=== PATIENT | female | born 1935 | race Caucasian/White ===

== ENCOUNTER 2018-05-26 10:15 | Observation (INO) | payer OTHER ==
[2018-05-26] MEDS ORDERED: FUROSEMIDE 40 MG/4 ML VIAL ONE (11:18)
[2018-05-26] MEDS ORDERED: predniSONE 20 MG TAB ONE (11:18)
[2018-05-26] MEDS ORDERED: ALBUTEROL 2.5 MG/3 ML NEB SOL ONE (11:18)
[2018-05-26] MEDS ORDERED: IPRATROPIUM BROM 0.5MG/2.5ML ONE (11:18)
--- NOTE | 2018-05-26 11:19 | RAD REPORT ---
EXAM DESCRIPTION: RAD - Chest Single View - 05/26/2018 11:13 am CLINICAL HISTORY: SOB Chest pain. COMPARISON: Chest Single View dated 05/30/2016; Chest Single View dated 04/28/2016; Chest Single View dated 04/27/2016; CHEST PA AND LAT 2 VIEW dated 04/07/2010 FINDINGS: Portable technique limits examination quality. Mild moderate bilateral pulmonary opacities are present compatible with pulmonary edema. Bilateral pl eural effusions are seen. Moderate cardiomegaly is present. No displaced fractures. IMPRESSION: Moderate CHF/ volume overload.
[2018-05-26 12:03] LABS: Absolute Lymphocytes (CBC) 0.8 K/uL (0.7-4.9); Absolute Monocytes 1.1 K/uL (0.1-1.3); Absolute Neutrophil 8.1 K/uL (1.8-8.0); Basophils % 0.6 % (0-1.3); Eosinophils % 1.5 % (0-4.4); Hematocrit 24.2 % (36.0-45.0); Lymphocytes % 7.9 % (15.3-44.8); MCH 23.5 pg (27.0-35.0); MPV 7.2 fL (7.6-11.3); Monocytes % 10.7 % (3.3-12.3)
[2018-05-26 12:04] LABS: Protime INR 1.08
[2018-05-26 12:19] LABS: ALT/SGPT 20 U/L (12-78); AST/SGOT 27 U/L (15-37); Albumin 3.4 g/dL (3.4-5.0); Alkaline Phosphatase 88 U/L (45-117); BUN Blood Urea Nitrogen 26 mg/dL (7-18); Bicarbonate 29 mmol/L (21-32); Bilirubin Direct < 0.1 mg/dL (0-0.2); Bilirubin Total 0.4 mg/dL (0.2-1.0); Glucose Level 100 mg/dL (74-106); Magnesium 2.1 mg/dL (1.8-2.4); NT PRO-BNP 4016 pg/mL (<450); Potassium 4.9 mmol/L (3.5-5.1); Protein, Total 6.7 g/dL (6.4-8.2); Sodium Level 138 mmol/L (136-145)
[2018-05-26 12:36] LABS: Urine Blood NEGATIVE (NEG); Urine Glucose NEGATIVE (NEG); Urine Protein NEGATIVE (NEG); Urine Specific Gravity 1.015 (1.005-1.030); Urine pH 5.5 (5.0-7.0)
--- NOTE | 2018-05-26 12:56 | EKG ---
Test Date: 2018-05-26 Test Time: 10:50:00 Mitigation Supervisor: VANI MEASUREMENT RESULTS: Intervals: Rate: 95 AK: QRSD: 140 QT: 392 QTc: 492 [place]: P: AK: QRS: 135 T: 31 INTERPRETIVE STATEMENTS: Atrial fibrillation Right bundle branch block Abnormal ECG Compared to ECG 05/30/2016 12:11:29 Sinus bradycardia no longer present T-wave abnormality no longer present Possible ischemia no longer present Intraventricular conduction delay no longer present Electronically Signed On 05-26-18 12:55:47 CDT by El Brown
--- NOTE | 2018-05-26 13:29 | ER ---
Nurse's Notes [facility] Name: Joycelyn Coombs Age: 83 yrs Sex: Female : 1935 Arrival Date: 05/26/2018 Time: 10:19 Bed 13 Private MD: Rio Nicolas Diagnosis: Systolic (congestive) heart failure Presentation: 05/26 10:24 Presenting complaint: Patient states: SOB and increased need for home O2 concentrator aj at home with 30 ft of extension tubing. Patient reports feeling better with hospital O2. Transition of care: patient was not received from another setting of care. Onset of symptoms was May 23, 2018. Risk Assessment: Do you want to hurt yourself or someone else? Patient reports no desire to harm self or others. Care prior to arrival: None. 10:24 Method Of Arrival: Wheelchair aj 10:24 Acuity: DELL 3 aj 12:24 Initial Sepsis Screen: Does the patient meet any 2 criteria? No. Patient's initial ph sepsis screen is negative. Does the patient have a suspected source of infection? No. Patient's initial sepsis screen is negative. Triage Assessment: 10:28 General: Appears in no apparent distress. comfortable, Behavior is calm, cooperative, aj appropriate for age. Pain: Denies pain. Neuro: Level of Consciousness is awake, alert, obeys commands, Oriented to person, place, time, situation, Appropriate for age. Respiratory: Reports shortness of breath Airway is patent Respiratory effort is even, unlabored, Respiratory pattern is regular, symmetrical, Onset: The symptoms/episode began/occurred gradually, the patient has mild shortness of breath. Derm: Skin is intact, is healthy with good turgor, Skin is pink, warm \T\ dry. normal. Historical: - Allergies: 10:28 NKDA; aj - Home Meds: 10:28 amiodarone 200 mg Oral tab 1 tab 2 times per day [Active]; amlodipine 10 mg tab 1 tab aj once daily [Active]; atorvastatin 20 mg Oral tab 1 tab once daily [Active]; clopidogrel 75 mg Oral tab 1 tab once daily [Active]; Ferrocite Plus 106 mg iron- 1 mg Oral tab 1 tab once daily [Active]; fluticasone furoate 200 mcg INH [Active]; furosemide 20 mg Oral tab 1 tab once daily [Active]; hydrochlorothiazide 25 mg Oral tab 1 tab once daily [Active]; levothyroxine 25 mcg tab 1 tab once daily [Active]; lisinopril 20 mg Oral tab 1 tab once daily [Active]; metoprolol tartrate 25 mg Oral tab 1 tab once daily [Active]; prednisone 20 mg Oral tab once daily [Active]; vorapaxar Oral [Active]; Eliquis oral oral [Active]; - PMHx: 10:28 Anemia; Atrial Fib; COPD; Hyperlipidemia; Hypertension; Hypothyroidism; aj - PSHx: 10:28 cardiac stents; Kidney stents; Angioplasty; Hysterectomy; Cholecystectomy; Carotid aj surgery; - Immunization history:: Adult Immunizations up to date. - Social history:: Smoking status: Patient/guardian denies using tobacco. - Ebola Screening: : Patient negative for fever greater than or equal to 101.5 degrees Fahrenheit, and additional compatible Ebola Virus Disease symptoms Patient denies exposure to infectious person Patient denies travel to an Ebola-affected area in the 21 days before illness onset No symptoms or risks identified at this time. Screenin:23 Abuse screen: Denies threats or abuse. Denies injuries from another. Nutritional ph screening: No deficits noted. Tuberculosis screening: No symptoms or risk factors identified. Fall Risk None identified. Assessment: 10:45 General: Appears in no apparent distress. comfortable, well groomed, Behavior is calm, ph cooperative, appropriate for age, Reports chills for 12-24 hours. Pain: Denies pain. Neuro: Level of Consciousness is awake, alert, obeys commands, Oriented to person, place, time, situation. Cardiovascular: Reports shortness of breath, Denies chest pain, nausea, vomiting, Capillary refill < 3 seconds Patient's skin is warm and dry. 12:15 Reassessment: Dr. Llanes notified of critical lab Hgb 7.3. ss 13:35 Reassessment: Patient appears in no apparent distress at this time. Patient and/or ph family updated on plan of care and expected duration. Pain level reassessed. Patient is alert, oriented x 3, equal unlabored respirations, skin warm/dry/pink. Dr Alanis at bedside to speak w/ pt and family. Respiratory: Reports shortness of breath at rest Airway is patent Respiratory effort is even, unlabored, Respiratory pattern is regular, symmetrical, Denies cough, pain with respiration. GI: No signs and/or symptoms were reported involving the gastrointestinal system. Derm: Skin is intact, is healthy with good turgor, Skin is pink, warm \T\ dry. Musculoskeletal: Circulation, motion, and sensation intact. Range of motion: intact in all extremities. 15:00 Reassessment: Patient appears in no apparent distress at this time. Patient and/or ph family updated on plan of care and expected duration. Pain level reassessed. Patient is alert, oriented x 3, equal unlabored respirations, skin warm/dry/pink. Pt resting quietly, ECHO at bedside, awaiting room assignment, family at [facility]. 15:20 Reassessment: Attempted to call report, receiving nurse unavailable, requested to call ph back in 10 min. 16:01 Reassessment: Patient appears in no apparent distress at this time. Patient and/or ph family updated on plan of care and expected duration. Pain level reassessed. Patient is alert, oriented x 3, equal unlabored respirations, skin warm/dry/pink. Report neela Francisco RN. Vital Signs: 10:28 BP 163 / 71; Pulse 92; Resp 23; Temp 97.9; Pulse Ox 91% on R/A; Weight 81.19 kg; Height aj 5 ft. 7 in. (170.18 cm); 10:30 Pulse Ox 94% on 2 lpm NC; aj 11:57 BP 219 / 71; Pulse 99; Resp 24; Pulse Ox 99% on 2 lpm NC; mh5 13:23 BP 213 / 78; Pulse 113; Resp 20; Pulse Ox 97% on 2 lpm NC; mh5 14:30 BP 197 / 80; Pulse 98; Resp 18; Temp 97.8; Pulse Ox 98% on 2 lpm NC; ph 15:20 BP 173 / 91; Pulse 99; Resp 16; Temp 97.8; Pulse Ox 98% on 2 lpm NC; ph 15:57 BP 159 / 82; Pulse 104; Resp 18; Temp 97.8; Pulse Ox 98% on R/A; ph 10:28 Body Mass Index 28.04 (81.19 kg, 170.18 cm) aj ED Course: 10:19 Patient arrived in ED. sb2 10:19 Rio Nicolas MD is Private Physician. sb2 10:26 Triage completed. aj 10:30 Arm band placed on left wrist. Patient placed in an exam room, in a wheelchair, on aj oxygen. 10:31 Helena Tubbs, RN is Primary Nurse. ph 10:33 Royer Llanes MD is Attending Physician. gs 10:53 EKG done, by non destructive evaluation technician. reviewed by Royer Llanes MD. at1 11:12 X-ray completed. Portable x-ray completed in exam room. Patient tolerated procedure jb2 well. 11:12 XRAY Chest (1 view) In Process Unspecified. EDMS 11:35 Inserted saline lock: 20 gauge in left antecubital area, using aseptic technique. Blood ph collected. 12:24 Patient has correct armband on for positive identification. Bed in low position. Call ph light in reach. Side rails up X 1. Pulse ox on. NIBP on. Warm blanket given. 13:28 Garrett Alanis DO is Hospitalizing Provider. gs 15:21 No provider procedures requiring assistance completed. Patient admitted, IV remains in ph place. Administered Medications: 11:40 Drug: predniSONE 40 mg Route: PO; ph 11:45 Drug: Lasix 40 mg Route: IVP; Site: left antecubital; ph 12:08 Drug: Albuterol 2.5 mg Route: Inhalation; ph 12:08 Drug: AtroVENT Aerosol 0.5 mg Route: Inhalation; ph Outcome: 13:29 Decision to Hospitalize by Provider. gs 16:23 Patient left the ED. ph Signatures: Dispatcher [employer] EDVT Kasandra Acuna RN RN aj Buechter, Jesse jb2 Cheri Jama RN RN ss gonzales, Amanda, kitchen runner EKG Tat1 Helena Tubbs RN RN [place] [id number] Royer Llanes MD MD Ida Lopez 2 Corrections: (The following items were deleted from the chart) 13:37 10:45 Cardiovascular: Capillary refill < 3 seconds Patient's skin is warm and dry. ph ph
--- NOTE | 2018-05-26 13:29 | EDPHYS ---
Physician Documentation [facility] Name: Joycelyn Coombs Age: 83 yrs Sex: Female : 1935 Arrival Date: 05/26/2018 Time: 10:19 Bed 13 Private MD: Rio Nicolas ED Physician Royer Llanes HPI: 05/26 13:24 This 83 yrs old Female presents to ER via Wheelchair with complaints of gs Shortness Of Breath. 13:24 Onset: The symptoms/episode began/occurred 2 day(s) ago, and became worse and became gs persistent. Duration: The symptoms are continuous. The patient's shortness of breath is aggravated by supine position. Associated signs and symptoms: Pertinent negatives: chest pain. Severity of symptoms: At their worst the symptoms were severe in the emergency department the symptoms are unchanged. The patient has experienced similar episodes in the past, several times. Historical: - Allergies: 10:28 NKDA; aj - Home Meds: 10:28 amiodarone 200 mg Oral tab 1 tab 2 times per day [Active]; amlodipine 10 mg tab 1 tab aj once daily [Active]; atorvastatin 20 mg Oral tab 1 tab once daily [Active]; clopidogrel 75 mg Oral tab 1 tab once daily [Active]; Ferrocite Plus 106 mg iron- 1 mg Oral tab 1 tab once daily [Active]; fluticasone furoate 200 mcg INH [Active]; furosemide 20 mg Oral tab 1 tab once daily [Active]; hydrochlorothiazide 25 mg Oral tab 1 tab once daily [Active]; levothyroxine 25 mcg tab 1 tab once daily [Active]; lisinopril 20 mg Oral tab 1 tab once daily [Active]; metoprolol tartrate 25 mg Oral tab 1 tab once daily [Active]; prednisone 20 mg Oral tab once daily [Active]; vorapaxar Oral [Active]; Eliquis oral oral [Active]; - PMHx: 10:28 Anemia; Atrial Fib; COPD; Hyperlipidemia; Hypertension; Hypothyroidism; aj - PSHx: 10:28 cardiac stents; Kidney stents; Angioplasty; Hysterectomy; Cholecystectomy; Carotid aj surgery; - Immunization history:: Adult Immunizations up to date. - Social history:: Smoking status: Patient/guardian denies using tobacco. - Ebola Screening: : Patient negative for fever greater than or equal to 101.5 degrees Fahrenheit, and additional compatible Ebola Virus Disease symptoms Patient denies exposure to infectious person Patient denies travel to an Ebola-affected area in the 21 days before illness onset No symptoms or risks identified at this time. ROS: 13:24 All other systems are negative. gs Exam: 13:24 Head/Face: Normocephalic, atraumatic. Eyes: Pupils equal round and reactive to light, gs extra-ocular motions intact. Lids and lashes normal. Conjunctiva and sclera are non-icteric and not injected. Cornea within normal limits. Periorbital areas with no swelling, redness, or edema. ENT: Nares patent. No nasal discharge, no septal abnormalities noted. Tympanic membranes are normal and external auditory canals are clear. Oropharynx with no redness, swelling, or masses, exudates, or evidence of obstruction, uvula midline. Mucous membranes moist. Neck: Trachea midline, no thyromegaly or masses palpated, and no cervical lymphadenopathy. Supple, full range of motion without nuchal rigidity, or vertebral point tenderness. No Meningismus. Chest/axilla: Normal chest wall appearance and motion. Nontender with no deformity. No lesions are appreciated. 13:24 Abdomen/GI: Soft, non-tender, with normal bowel sounds. No distension or tympany. No guarding or rebound. No evidence of tenderness throughout. Back: No spinal tenderness. No costovertebral tenderness. Full range of motion. Skin: Warm, dry with normal turgor. Normal color with no rashes, no lesions, and no evidence of cellulitis. Neuro: Awake and alert, GCS 15, oriented to person, place, time, and situation. Cranial nerves II-XII grossly intact. Motor strength 5/5 in all extremities. Sensory grossly intact. Cerebellar exam normal. Normal gait. 13:24 Constitutional: The patient appears alert, awake. 13:24 Cardiovascular: Rate: normal, Rhythm: irregularly irregular, Pulses: no pulse deficits are appreciated, Edema: 2+ edema to level of left ankle and right ankle. 13:24 ECG was reviewed by the Attending Physician. 13:24 Respiratory: mild respiratory distress is noted, Respirations: tachypnea, Breath sounds: rales, that are moderate, are located in both bases, wheezing: that is mild, is heard diffusely. 13:24 Musculoskeletal/extremity: Pulses: are normal with no appreciated deficits, Edema, 2+ to the left ankle and right ankle is noted. Vital Signs: 10:28 BP 163 / 71; Pulse 92; Resp 23; Temp 97.9; Pulse Ox 91% on R/A; Weight 81.19 kg; Height aj 5 ft. 7 in. (170.18 cm); 10:30 Pulse Ox 94% on 2 lpm NC; aj 11:57 BP 219 / 71; Pulse 99; Resp 24; Pulse Ox 99% on 2 lpm NC; mh5 13:23 BP 213 / 78; Pulse 113; Resp 20; Pulse Ox 97% on 2 lpm NC; mh5 14:30 BP 197 / 80; Pulse 98; Resp 18; Temp 97.8; Pulse Ox 98% on 2 lpm NC; ph 15:20 BP 173 / 91; Pulse 99; Resp 16; Temp 97.8; Pulse Ox 98% on 2 lpm NC; ph 15:57 BP 159 / 82; Pulse 104; Resp 18; Temp 97.8; Pulse Ox 98% on R/A; ph 10:28 Body Mass Index 28.04 (81.19 kg, 170.18 cm) aj MDM: 10:56 Patient medically screened. 13:24 Differential diagnosis: CHF exacerbation, Chronic Obstructive Pulmonary Disease gs Myocardial Infarction pneumonia. Data reviewed: vital signs, nurses notes. Response to treatment: the patient's symptoms have markedly improved after treatment, and as a result, I will admit patient. 05/26 10:56 Order name: Basic Metabolic Panel; Complete Time: 12:51 05/26 10:56 Order name: CBC with Diff; Complete Time: 12:51 05/26 10:56 Order name: LFT's; Complete Time: 12:51 05/26 10:56 Order name: Magnesium; Complete Time: 12:51 05/26 10:56 Order name: NT PRO-BNP; Complete Time: 12:51 05/26 10:56 Order name: PT-INR; Complete Time: 12:51 05/26 10:56 Order name: Troponin (emerg Dept Use Only); Complete Time: 12:51 05/26 10:56 Order name: XRAY Chest (1 view); Complete Time: 11:50 05/26 10:56 Order name: Blood Culture* 05/26 12:19 Order name: Urine Dipstick--Ancillary (enter results); Complete Time: 12:51 05/26 10:56 Order name: EKG; Complete Time: 10:56 05/26 10:56 Order name: Cardiac monitoring; Complete Time: 13:34 05/26 10:56 Order name: EKG - Nurse/Tech; Complete Time: 13: 05/26 10:56 Order name: IV Saline Lock; Complete Time: 13: 05/26 10:56 Order name: Labs collected and sent; Complete Time: 13: 05/26 10:56 Order name: O2 Per Protocol; Complete Time: 13: 05/26 10:56 Order name: O2 Sat Monitoring; Complete Time: 13: 05/26 10:56 Order name: Urine Dipstick-Ancillary (obtain specimen); Complete Time: 13:34 EC:24 Rate is 95 beats/min. Rhythm is irregularly irregular. QRS [place] is Normal. QRS interval gs is prolonged. T waves are Flattened. Clinical impression: Abnormal EKG without significant change. Interpreted by me. Administered Medications: 11:40 Drug: predniSONE 40 mg Route: PO; ph 11:45 Drug: Lasix 40 mg Route: IVP; Site: left antecubital; ph 12:08 Drug: Albuterol 2.5 mg Route: Inhalation; ph 12:08 Drug: AtroVENT Aerosol 0.5 mg Route: Inhalation; ph Disposition: 13:24 Critical Care:. Disposition: 05/26/18 13:29 Hospitalization ordered by Garrett Alanis for Inpatient Admission. Preliminary diagnosis is Systolic (congestive) heart failure. - Bed requested for Telemetry/MedSurg (Inpatient). - Status is Inpatient Admission. ph - Condition is Stable. - Problem is an acute exacerbation. - Symptoms have improved. UTI on Admission? No Critical care time excluding procedures: 13:24 Critical care time: Bedside Care: 10 minutes, Consultation: 10 minutes, Family gs Intervention: 10 minutes. Total time: 30 minutes Signatures: Dispatcher [employer] Keisha Silverman RN RN dw Myers, Amanda, RN RN aj Hall, Patricia, RN RN ph Starr, Gregory, MD MD Corrections: (The following items were deleted from the chart) 14:53 13:29 Hospitalization Ordered by Garrett Alanis DO for Inpatient Admission. Preliminary dw diagnosis is Systolic (congestive) heart failure. Bed requested for Telemetry/MedSurg (Inpatient). Status is Inpatient Admission. Condition is Stable. Problem is an acute exacerbation. Symptoms have improved. UTI on Admission? No. gs 16:23 14:53 05/26/2018 13:29 Hospitalization Ordered by Garrett Alanis DO for Inpatient ph Admission. Preliminary diagnosis is Systolic (congestive) heart failure. Bed requested for Telemetry/MedSurg (Inpatient). Status is Inpatient Admission. Condition is Stable. Problem is an acute exacerbation. Symptoms have improved. UTI on Admission? No. dw
[2018-05-26] MEDS ORDERED: IPRATROPIUM BROM 0.5MG/2.5ML NEB PRN (13:45)
[2018-05-26] MEDS ORDERED: ONDANSETRON 4 MG/2 ML VIAL IV PRN (13:45)
[2018-05-26] MEDS ORDERED: ACETAMINOPHEN 500 MG TAB PO PRN (13:45)
[2018-05-26] MEDS ORDERED: SODIUM CHLORIDE 0.9% 10ML INJ IV PRN (14:03)
--- NOTE | 2018-05-26 14:24 | P.HP ---
Certification for Inpatient Patient admitted to: Observation With expected LOS: <2 Midnights Patient will require the following post-hospital care: None Practitioner: I am a practitioner with admitting privileges, knowledge of patient current condition, hospital course, and medical plan of care. Services: Services provided to patient in accordance with Admission requirements found in Title 42 Section 412.3 of the Code of Federal Regulations Patient History Date of Service: 05/26/18 Primary Care Provider: None; Pulmonary-Dr. Mccollmu; Cardiology-Dr. Asher Reason for admission: Shortness of breath History of Present Illness: 83-year-old female presented to ER with shortness of breath. Patient reports increasing shortness of breath over the past 2 weeks. She also has reported some edema to the lower extremity. She denied any chest pain, nausea, vomiting or diarrhea. Patient has reported some orthopnea. She is not able to lie flat. Shortness of breath worsened over the past 2 days. Increasing peripheral edema has been noted. Patient with history of atrial fibrillation on chronic anti coagulation therapy, hypertension, COPD, anemia, peripheral vascular disease, CAD, and carotid arterial disease. In the ER patient was evaluated. White count 10.2, hemoglobin 7.3. Platelet count of 419. Sodium 138, potassium 4.9, GFR 48. BNP 4016. Urinalysis negative. Chest x-ray showed moderate CHF. Due to nature the findings the patient was admitted for treatment. In the ER patient appeared stable. She did not appear in any respiratory distress. Patient had room-air saturations about 91%. Respiratory was slightly elevated. Patient was given Lasix in the emergency room. Patient denies any significant hematuria, rectal bleeding, or melena. Patient further reports a history of anemia. She is had EGD and colonoscopy in the past. Patient has required blood transfusion in the past. Allergies No Known Drug Allergies Allergy (Verified 06/22/16 08:29) Unknown Home medications list reviewed: Yes Home Medications: Amiodarone HCl [Cordarone*] 200 mg PO BID 04/27/16 Atorvastatin Calcium [Lipitor*] 20 mg PO DAILY 04/27/16 Clopidogrel Bisulfate [Plavix] 75 mg PO DAILY 04/27/16 Levothyroxine [Synthroid*] 25 mcg PO [id number] 04/27/16 Lisinopril [Prinivil*] 20 mg PO DAILY 04/27/16 Metoprolol Tartrate [Lopressor*] 25 mg PO DAILY 04/27/16 Amlodipine [Norvasc*] 10 mg PO DAILY #30 tab 04/30/16 Codeine/APAP [Tylenol #3*] 1 tab PO Q6HP PRN #30 tab 04/30/16 Pantoprazole [Protonix Tab*] 40 mg PO BID #60 tab 04/30/16 Fe Fumarate/FA/Mv, Min Comb#15 [Hemocyte Plus Capsule] 1 each PO DAILY 05/31/16 Fluticasone/Vilanterol [Breo Ellipta 200-25 Mcg INH] 1 each IH DAILY 05/31/16 Furosemide [Lasix] 20 mg PO DAILY 05/31/16 hydroCHLOROthiazide [Hydrochlorothiazide] 1 tab PO DAILY 05/31/16 Iron/FA/Vit B-Com W/C [Hemocyte Plus*] 1 tab PO DAILY #30 tab 06/01/16 Lactulose 20 gm PO DAILY #1000 ml 06/03/16 - Past Medical/Surgical History Diabetic: No -: CHF, systolic dysfunction -: Atrial fibrillation, chronic anti coagulation -: Anemia -: Chronic kidney disease -: Hypertension -: Hyperlipidemia -: COPD, former tobacco use -: Carotid arterial disease -: Peripheral vascular disease -: CAD -: Cardiac catheterization -: Left Carotid Stent -: Lower extremity stent -: Kidney stent Psychosocial/ Personal History: The patient is a . She has 2 children. - Family History Father -: Other (see notes) (CHF) Mother -: Other (see notes) (CHF) - Social History Smoking Status: Former smoker Alcohol use: No CD- Drugs: No Caffeine use: Yes Place of Residence: Home Review of Systems General: Unremarkable Eyes: Unremarkable ENT: Unremarkable Respiratory: Cough, Shortness of Breath, SOB with Excertion, Wheezing Cardiovascular: Orthopnea, Edema, As per HPI Gastrointestinal: Unremarkable Genitourinary: Unremarkable Musculoskeletal: Pedal edema, As per HPI Integumentary: Unremarkable Neurological: Unremarkable Lymphatics: Unremarkable Physical Examination - Physical Exam General: Alert, In no apparent distress, Oriented x3, Cooperative HEENT: Atraumatic, Normocephalic, PERRLA, Mucous membr. moist/pink Neck: Supple, No Thyromegaly Respiratory: Crackles/rales (Bilateral), Expiratory wheezes (Bilateral) Cardiovascular: Irregular heart rate/rhythm (Atrial fibrillation, rate around 90 -100) Gastrointestinal: Normal bowel sounds, Soft and benign, Non-distended, No tenderness, No masses, No rebound, No guarding Musculoskeletal: No erythema, No tenderness, No warmth Integumentary: No erythema, No warmth, No cyanosis, Tenderness/swelling (Mild edema to the lower extremities) Neurological: Normal speech, Normal strength at 5/5 x4 extr, Normal tone, Normal affect Lymphatics: No axilla or inguinal lymphadenopathy - Studies Laboratory Data (last 24 hrs) 05/26/18 11:35: PT 12.8 H, INR 1.08 05/26/18 11:35: WBC 10.2, Hgb 7.3 L*, Hct 24.2 L, Plt Count 419 H 05/26/18 11:35: Sodium 138, Potassium 4.9, BUN 26 H, Creatinine 1.10, Glucose 100, Magnesium 2.1, Total Bilirubin 0.4, AST 27, ALT 20, Alkaline Phosphatase 88 Assessment and Plan - Problems (Diagnosis) (1) COPD (chronic obstructive pulmonary disease) Current Visit: Yes Status: Acute Plan: Shortness of breath likely from COPD/CHF exacerbation. Will continue with COPD treatment. Will recheck x-ray in the morning. Will continue with IV steroids and breathing treatments. Will consult pulmonology to further evaluate. Patient may require home oxygen at discharge. Qualifiers: COPD type: COPD with acute exacerbation Qualified Code(s): J44.1 - Chronic obstructive pulmonary disease with (acute) exacerbation (2) Chronic anticoagulation Current Visit: Yes Status: Chronic Plan: Will continue with Eliquis. Patient with anemia. Patient reports a history of anemia requiring blood transfusion in the past. She has had EGD colonoscopy as well. Patient reports no melena. Will recheck hemoglobin. Will monitor closely. Patient may require transfusion. Will check iron and B12 studies. (3) Hypertension Current Visit: Yes Status: Chronic Plan: Will continue with her medication. Will increase metoprolol for better blood pressure control and rate control. Qualifiers: Hypertension type: essential hypertension Qualified Code(s): I10 - Essential (primary) hypertension (4) Hyperlipidemia Current Visit: Yes Status: Chronic Plan: Will continue with medication. Will check lipid panel. Qualifiers: Hyperlipidemia type: unspecified Qualified Code(s): E78.5 - Hyperlipidemia , unspecified (5) Hypothyroidism Current Visit: Yes Status: Chronic Plan: Will continue with her medication. Will check tsh. Qualifiers: Hypothyroidism type: unspecified Qualified Code(s): E03.9 - Hypothyroidism , unspecified (6) Anemia Onset Date: 06/01/16 Current Visit: No Status: Chronic Plan: Patient appears to have a history of chronic anemia. She has required blood transfusion the past. She has seen GI with EGD and colonoscopy. Will monitor hemoglobin closely. Patient may require transfusion. No melena noted. Qualifiers: Anemia type: other cause (7) Atrial fibrillation Current Visit: No Status: Chronic Plan: Will continue with her medication. Patient takes amiodarone. Qualifiers: Atrial fibrillation type: chronic Qualified Code(s): I48.2 - Chronic atrial fibrillation (8) Chronic kidney disease Current Visit: No Status: Chronic Plan: This appears stable. Will monitor closely. Qualifiers: Chronic kidney disease stage: stage 2 (mild) Qualified Code(s): N18.2 - Chronic kidney disease, stage 2 (mild) (9) Congestive heart failure (CHF) Current Visit: No Status: Acute Plan: CHF exacerbation noted. Will teach on 1500 cc per day fluid restriction and low- salt diet. Will continue with Lasix 20 mg IV twice daily. Will check echocardiogram. Patient seen by Cardiology as an outpatient. Qualifiers: Heart failure type: systolic Heart failure chronicity: acute on chronic Qualified Code(s): I50.23 - Acute on chronic systolic (congestive) heart failure Discharge Plan: Home Plan to discharge in: 24 Hours - Advance Directives Does patient have a Living Will: No Does patient have a Durable POA for Healthcare: No - Code Status/Comfort Care Code Status Assessed: Yes Time Spent Managing Pts Care (In Minutes): 55
--- NOTE | 2018-05-26 15:33 | ECHO ---
HEIGHT: 5 ft 7 in WEIGHT: 179 lb oz DATE OF STUDY: 05/26/[address]: Garrett Alanis DO 2-DIMENSIONAL: YES M.MODE: YES DOPPLER: YES COLOR FLOW: YES TDS: YES PORTABLE: NO DEFINITY: NO BUBBLE STUDY: NO DIAGNOSIS: EVALUATE FOR CONGESTIVE HEART FAILURE CARDIAC HISTORY: CATHERIZATION: NO SURGERY: NO PROSTHETIC VALVE: NO PACEMAKER: NO MEASUREMENTS (cm) DIASTOLIC (NORMALS) SYSTOLIC (NORMALS) IVSd 1.6 (0.6-1.2) LA Diam 5.3 (1.9-4.0) LVEF 71% LVIDd 4.2 (3.5-5.7) LVIDs 2.5 (2.0-3.5) %FS 40% LVPWd 1.4 (0.6-1.2) Ao Diam 2.8 (2.0-3.7) 2 DIMENSIONAL ASSESSMENT: RIGHT ATRIUM: NORMAL LEFT ATRIUM: DILATED RIGHT VENTRICLE: NORMAL LEFT VENTRICLE: LEFT VENTRICULAR HYPERTROPHY TRICUSPID VALVE: NORMAL MITRAL VALVE: MITRAL ANNULAR CALCIFICATION PULMONIC VALVE: NORMAL AORTIC VALVE: SCLEROSIS PERICARDIAL EFFUSION: NONE AORTIC ROOT: NORMAL LEFT VENTRICULAR WALL MOTION: NORMAL. DOPPLER/COLOR FLOW: MILD MITRAL REGURGITATION. MILD TRICUSPID REGURGITATION. MILDLY PULMONARY HYPERTENSION. ESTIMATED RIGHT VENTRICULAR SYSTOLIC PRESSURE 45mmHg. COMMENTS: NORMAL LEFT VENTRICULAR EJECTION FRACTION. LEFT VENTRICULAR HYPERTROPHY. DILATED LEFT ATRIUM. MITRAL ANNULAR CALCIFICATION. AORTIC SCLEROSIS WITH NO AORTIC STENOSIS/ AORTIC REGURGITATION. MILD MITRAL REGURGITATION. MILD TRICUSPID REGURGITATION. MILD PULMONARY HYPERTENSION. TECHNOLOGIST: CORTES ROSS
[2018-05-26 17:52] VITALS: BMI 28.0
[2018-05-26 17:58] LABS: Hematocrit 24.4 % (36.0-45.0)
[2018-05-26 18:31] LABS: Ferritin 23.3 ng/mL (8-388)
[2018-05-26] MEDS ORDERED: LACTULOSE 20 GM/30 ML UCUP PO PRN (18:41)
[2018-05-26] MEDS: FUROSEMIDE 20 MG/ 2ML VIAL IV SCH (18:49)
[2018-05-26] MEDS: METHYLPREDNISOLONE 125 MG INJ IV SCH ×2 (18:50→20:36)
[2018-05-26] MEDS: APIXABAN 5 MG TABLET PO SCH (19:00)
[2018-05-26] MEDS: METOPROLOL TAR 50 MG TAB PO SCH (19:00)
[2018-05-26] MEDS: ATORVASTATIN 20 MG TAB PO SCH (19:00)
[2018-05-26] MEDS: AMIODARONE HCL 200 MG TAB PO SCH (19:01)
[2018-05-26] MEDS: HYDROCODONE/APAP 7.5/325 MG TAB PO PRN (19:06)
[2018-05-26] MEDS ORDERED: ARFORMOTEROL TARTRATE 15 MCG/2 ML VIAL.NEB ONE (19:43)
[2018-05-26] MEDS: ARFORMOTEROL TARTRATE 15 MCG/2 ML VIAL.NEB NEB SCH (19:49)
[2018-05-26] MEDS: PANTOPRAZOLE 40 MG INJ IVP SCH (20:36)
[2018-05-26] MEDS: ALPRAZOLAM 0.25 MG TABLET PO PRN (20:53)
[2018-05-26 21:16] LABS: CKMB Creatine Kinase MB 2.9 ng/mL (0.3-3.6)
[2018-05-27] MEDS: LEVOTHYROXINE SOD 0.025 MG TAB PO SCH (05:04)
[2018-05-27 05:25] LABS: Absolute Lymphocytes (CBC) 0.5 K/uL (0.7-4.9); Absolute Monocytes 0.1 K/uL (0.1-1.3); Absolute Neutrophil 8.4 K/uL (1.8-8.0); Basophils % 0.3 % (0-1.3); Eosinophils % 0.1 % (0-4.4); Hematocrit 23.1 % (36.0-45.0); MCH 24.3 pg (27.0-35.0); MCV 76.6 fL (80-100); MPV 7.3 fL (7.6-11.3); Monocytes % 1.3 % (3.3-12.3); RBC Red Blood Cell Count 3.01 M/uL (3.86-4.86)
[2018-05-27 06:22] LABS: Blood Morphology Comment NOTED (NOT SEEN); Hypochromasia 1+; Platelet Estimate INCR; Urine White Blood Cell Casts OK
[2018-05-27 06:38] LABS: Albumin 3.3 g/dL (3.4-5.0); Bilirubin Total 0.3 mg/dL (0.2-1.0); CKMB Creatine Kinase MB 3.2 ng/mL (0.3-3.6); Potassium 4.6 mmol/L (3.5-5.1); Protein, Total 6.6 g/dL (6.4-8.2); Thyroid Stimulating Hormone 1.45 uIU/mL (0.36-3.74)
[2018-05-27] MEDS: ARFORMOTEROL TARTRATE 15 MCG/2 ML VIAL.NEB NEB SCH ×2 (07:46→20:25)
--- NOTE | 2018-05-27 08:20 | RAD REPORT ---
EXAM DESCRIPTION: RAD - Chest Pa And Lat (2 Views) - 05/27/2018 7:15 am CLINICAL HISTORY: follow up chf/copd Chest pain. COMPARISON: Chest Single View dated 05/26/2018; Chest Single View dated 05/30/2016; Chest Single View dated 04/28/2016; Chest Single View dated 04/27/2016 FINDINGS: Little overall change is seen since 05/26/2018 in the bilateral pleural effusions and CHF pattern. The heart is moderately enlarged in size. No displaced fractures. Aortic atherosclerosis. IMPRESSION: Stable findings of CHF/ volume overload since 05/26/2018.
[2018-05-27] MEDS: FUROSEMIDE 20 MG/ 2ML VIAL IV SCH ×2 (08:37→16:54)
[2018-05-27] MEDS: METHYLPREDNISOLONE 125 MG INJ IV SCH (08:37)
[2018-05-27] MEDS: AMIODARONE HCL 200 MG TAB PO SCH ×2 (08:37→21:22)
[2018-05-27] MEDS: PANTOPRAZOLE 40 MG INJ IVP SCH ×2 (08:38→21:29)
[2018-05-27] MEDS: APIXABAN 5 MG TABLET PO SCH ×2 (08:38→21:22)
[2018-05-27] MEDS: METOPROLOL TAR 50 MG TAB PO SCH ×2 (08:38→21:21)
[2018-05-27] MEDS: AMLODIPINE 10 MG TAB PO SCH (08:38)
[2018-05-27] MEDS: CLOPIDOGREL 75 MG TABLET PO SCH (08:38)
[2018-05-27] MEDS ORDERED: SOD FERRIC GLUC COMPLX/SUCROSE 125 MG in NA CHLORIDE 0.9% 100 ML IV SCH (09:00)
[2018-05-27 09:40] LABS: Hematocrit 23.4 % (36.0-45.0)
--- NOTE | 2018-05-27 10:44 | P.PN ---
Subjective Date of Service: 05/27/18 Primary Care Provider: None; Pulmonary-Dr. Mccollum; Cardiology-Dr. Asher Chief Complaint: Shortness of breath Subjective: Improving (Patient feels better. Patient was diuresed Overnite.) Physical Examination - Vital Signs Temperature: 98.9 F Blood Pressure: 158/56 Pulse: 95 Respirations: 22 Pulse Ox (%): 89 - Physical Exam General: Alert, In no apparent distress, Oriented x3, Cooperative HEENT: Atraumatic Neck: Supple Respiratory: Crackles/rales (To the bases bilateral) Cardiovascular: Normal pulses, Regular rate/rhythm Gastrointestinal: Normal bowel sounds, Soft and benign, Non-distended, No tenderness, No masses, No rebound, No guarding Musculoskeletal: No erythema, No tenderness, No warmth Integumentary: No erythema, No warmth, No cyanosis, Tenderness/swelling (Less edema to the lower extremities bilateral) Neurological: Normal speech, Normal strength at 5/5 x4 extr, Normal tone, Normal affect - Studies Laboratory Data (last 24 hrs) 05/26/18 11:35: PT 12.8 H, INR 1.08 05/26/18 11:35: WBC 10.2, Hgb 7.3 L*, Hct 24.2 L, Plt Count 419 H 05/26/18 11:35: Sodium 138, Potassium 4.9, BUN 26 H, Creatinine 1.10, Glucose 100, Magnesium 2.1, Total Bilirubin 0.4, AST 27, ALT 20, Alkaline Phosphatase 88 Medications List Reviewed: Yes Assessment & Plan - Problems (Diagnosis) (1) COPD (chronic obstructive pulmonary disease) Onset Date: 05/27/18 Current Visit: Yes Status: Acute Plan: Shortness of breath likely from COPD/CHF exacerbation. This is likely more CHF related. Patient much improved. Will continue with COPD treatment. Will discuss with pulmonology. Patient with anemia. This is been long standing. Patient has stopped her iron medication for over a year. Hemoglobin decreased at this time. Will provide 2 units of blood. Patient has been evaluated as an outpatient by GI. Patient currently taking Plavix and Eliquis. Anticipate possible discharge later today. Echocardiogram shows ejection fraction 75% with mild pulmonary hypertension. Will continue with diuresis. Will reassess later for possible discharge. Patient may require home oxygen at discharge. Qualifiers: COPD type: COPD with acute exacerbation Qualified Code(s): J44.1 - Chronic obstructive pulmonary disease with (acute) exacerbation (2) Chronic anticoagulation Onset Date: 05/27/18 Current Visit: Yes Status: Chronic Plan: Will continue with Eliquis. Patient with anemia. Patient reports a history of anemia requiring blood transfusion in the past. She has had EGD colonoscopy as well. Patient reports no melena. Recheck hemoglobin low. Will provide 2 units of packed red blood cells at this time. Patient reports that she stop her iron medication over a year ago. Patient will require Lasix after each unit. Will recheck hemoglobin after 2nd unit given. Possible discharge later today if stable. Patient will need oral iron therapy at discharge. (3) Hypertension Onset Date: 05/27/18 Current Visit: Yes Status: Chronic Plan: Will continue with her medication. Metoprolol has been increased. Will continue to adjust medication. Qualifiers: Hypertension type: essential hypertension Qualified Code(s): I10 - Essential (primary) hypertension (4) Hyperlipidemia Onset Date: 05/27/18 Current Visit: Yes Status: Chronic Plan: Will continue with medication. Qualifiers: Hyperlipidemia type: unspecified Qualified Code(s): E78.5 - Hyperlipidemia , unspecified (5) Hypothyroidism Onset Date: 05/27/18 Current Visit: Yes Status: Chronic Plan: Will continue with her medication. Qualifiers: Hypothyroidism type: unspecified Qualified Code(s): E03.9 - Hypothyroidism , unspecified (6) Anemia Onset Date: 06/01/16 Current Visit: No Status: Chronic Plan: Patient appears to have a history of chronic anemia. She has required blood transfusion the past. She has seen GI with EGD and colonoscopy. Patient also takes Eliquis and Plavix. Hemoglobin low at this time. Will provide 2 units of packed red blood cells. Will provide Lasix after each unit. Will reassess after transfusion. Anticipate discharge later today. Patient reports that she has not used her oral iron for over a year. Patient will need iron supplementation at discharge. Qualifiers: Anemia type: other cause (7) Atrial fibrillation Onset Date: 05/27/18 Current Visit: Yes Status: Chronic Plan: Will continue with her medication. Patient only takes Eliquis once daily. This should be given twice daily. 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 Qualifiers: Atrial fibrillation type: chronic Qualified Code(s): I48.2 - Chronic atrial fibrillation (8) Chronic kidney disease Onset Date: 05/27/18 Current Visit: Yes Status: Chronic Plan: This appears stable. Will monitor closely. Qualifiers: Chronic kidney disease stage: stage 2 (mild) Qualified Code(s): N18.2 - Chronic kidney disease, stage 2 (mild) (9) Congestive heart failure (CHF) Onset Date: 05/27/18 Current Visit: Yes Status: Acute Plan: Patient with diastolic dysfunction. Ejection fraction 75%. Mild pulmonary hypertension noted with the right ventricular systolic pressure of 45 mm Hg. Will continue with fluid restriction. Will continue with diuresis. Will address with pulmonology and her 3rd grade reading teacher as an outpatient. Qualifiers: Heart failure type: systolic Heart failure chronicity: acute on chronic Qualified Code(s): I50.23 - Acute on chronic systolic (congestive) heart failure (10) Pulmonary hypertension Current Visit: Yes Status: Chronic Plan: Continue above. Discharge Plan: Home Plan to discharge in: 24 Hours Time Spent Managing Pts Care (In Minutes): 55
[2018-05-27] MEDS ORDERED: FUROSEMIDE 20 MG/ 2ML VIAL IV SCH (11:07)
--- NOTE | 2018-05-27 12:51 | P.CNS ---
Date of Consult: 05/27/18 Primary Care Provider: None; Pulmonary-Dr. Mccollum; Cardiology-Dr. Asher Chief Complaint: Shortness of breath History of Present Illness: Patient is a pleasant 83-year-old lady with a history of COPD he quit swelling of lower extremities patient is compliant with her inhaler doing much better admitted with a congestive heart failure BNP was elevated lower extremity edema no other complaints Allergies No Known Drug Allergies Allergy (Verified 06/22/16 08:29) Unknown zolpidem [From Ambien] Adverse Reaction (Verified 05/26/18 18:18) Anaphylaxis Home Medications: Amiodarone HCl [Cordarone*] 200 mg PO BID 04/27/16 Atorvastatin Calcium [Lipitor*] 20 mg PO DAILY 04/27/16 Clopidogrel Bisulfate [Plavix] 75 mg PO DAILY 04/27/16 Levothyroxine [Synthroid*] 25 mcg PO [id number] 04/27/16 Lisinopril [Prinivil*] 20 mg PO DAILY 04/27/16 Metoprolol Tartrate [Lopressor*] 25 mg PO DAILY 04/27/16 Amlodipine [Norvasc*] 10 mg PO DAILY #30 tab 04/30/16 Fluticasone/Vilanterol [Breo Ellipta 200-25 Mcg INH] 1 each IH DAILY 05/31/16 Furosemide [Lasix] 20 mg PO DAILY 05/31/16 hydroCHLOROthiazide [Hydrochlorothiazide] 1 tab PO DAILY 05/31/16 Albuterol Sulfate [Proair Hfa] 2 puff IH QID PRN 05/26/18 Apixaban [Eliquis] 2.5 mg PO DAILY 05/26/18 Hydrocodone Bit/Acetaminophen [Hydrocodon-Acetaminoph 7.5-325] 1 tab PO BID PRN 05/26/18 Lactulose 20 gm PO DAILY PRN 05/26/18 - Past Medical/Surgical History Diabetic: No -: CHF, systolic dysfunction -: Atrial fibrillation, chronic anti coagulation -: Anemia -: Chronic kidney disease -: Hypertension -: Hyperlipidemia -: COPD, former tobacco use -: Carotid arterial disease -: Peripheral vascular disease -: CAD -: rt leg fx in 3 places -: rt arm & shoulder broke -: Cardiac catheterization -: Left Carotid Stent -: Lower extremity stents -: bilat kidney stents Psychosocial/ Personal History: The patient is a . She has 2 children. - Family History Father Medical History: Heart disease, Other (see notes) Mother Medical History: Heart disease, Other (see notes) Sister Medical History: Heart disease Notes: A-fibb - Social History Alcohol use: No CD- Drugs: No Caffeine use: Yes Place of Residence: Home Review of Systems 10-point ROS is otherwise unremarkable General: Weakness Respiratory: Shortness of Breath Cardiovascular: Edema Physical Examination Temp Pulse Resp BP Pulse Ox 98.9 F 95 H 22 H 158/56 H 89 L 05/27/18 10:46 05/27/18 10:46 05/27/18 10:46 05/27/18 10:46 05/27/18 10:46 General: Alert, Oriented x3 HEENT: Atraumatic Neck: Supple Respiratory: Clear to auscultation bilaterally, Diminished Cardiovascular: Normal S1 S2, Edema (2+ edema) Gastrointestinal: Normal bowel sounds, Soft and benign - Problems (1) Diastolic heart failure Current Visit: Yes Status: Acute Plan: Patient is 83 years of age admitted with worsening dyspnea lower extremity edema he does have COPD and is compliant with her medication patient has home oxygen patient has bilateral pleural effusions mild renal insufficiency BNP is over 4000 I suggest increasing the dose of her Lasix at home patient to restrict fluid intake continue with bronchodilators patient has a portable home concentrator and requested replacement with a smaller 1 patient's blood pressure is elevated in addition patient has severe microcytic anemia has been seen by GI I will get an iron infusion here she was supposed to be taking iron but she Qualifiers: Heart failure chronicity: acute on chronic Qualified Code(s): I50.33 - Acute on chronic diastolic (congestive) heart failure
[2018-05-27] MEDS ORDERED: NA CHLORIDE 0.9% 250 ML ONE (21:21)
[2018-05-27] MEDS: ATORVASTATIN 20 MG TAB PO SCH (21:22)
[2018-05-27] MEDS: HYDROCODONE/APAP 7.5/325 MG TAB PO PRN (21:28)
[2018-05-27] MEDS: ALPRAZOLAM 0.25 MG TABLET PO PRN (21:29)
[2018-05-28 03:39] VITALS: O2SAT 95
[2018-05-28 03:39] LABS: Absolute Lymphocytes (CBC) 1.1 K/uL (0.7-4.9); Absolute Monocytes 1.8 K/uL (0.1-1.3); Absolute Neutrophil 18.7 K/uL (1.8-8.0); Basophils % 0.2 % (0-1.3); Hematocrit 29.6 % (36.0-45.0); Lymphocytes % 4.9 % (15.3-44.8); MCH 24.3 pg (27.0-35.0); MCV 79.3 fL (80-100); MPV 7.5 fL (7.6-11.3); Monocytes % 8.4 % (3.3-12.3); RBC Red Blood Cell Count 3.74 M/uL (3.86-4.86)
[2018-05-28 03:49] LABS: Albumin 3.4 g/dL (3.4-5.0); Bilirubin Total 0.6 mg/dL (0.2-1.0); Magnesium 2.1 mg/dL (1.8-2.4); Potassium 4.6 mmol/L (3.5-5.1); Protein, Total 6.5 g/dL (6.4-8.2)
[2018-05-28 04:41] LABS: Anisocytosis 1+; Blood Morphology Comment NOTED (NOT SEEN); Platelet Estimate ADEQ
[2018-05-28] MEDS: LEVOTHYROXINE SOD 0.025 MG TAB PO SCH (06:21)
[2018-05-28 07:23] LABS: Absolute Lymphocytes (CBC) 1.4 K/uL (0.7-4.9); Absolute Monocytes 1.6 K/uL (0.1-1.3); Absolute Neutrophil 15.5 K/uL (1.8-8.0); Basophils % 0.3 % (0-1.3); Hematocrit 28.6 % (36.0-45.0); Lymphocytes % 7.6 % (15.3-44.8); MCH 24.5 pg (27.0-35.0); MCV 79.5 fL (80-100); MPV 7.4 fL (7.6-11.3); Monocytes % 8.6 % (3.3-12.3)
--- NOTE | 2018-05-28 07:56 | RAD REPORT ---
EXAM DESCRIPTION: Dayron Soriano And Lat (2 Views)05/28/2018 7:20 am CLINICAL HISTORY: Shortness of breath COMPARISON: May 27 FINDINGS: Small to moderate bilateral pleural effusions are unchanged with bibasilar atelectasis. Mi ld interstitial pulmonary edema is suspected. The heart is mildly enlarged IMPRESSION: No change in CHF
[2018-05-28] MEDS: PANTOPRAZOLE 40 MG INJ IVP SCH (08:35)
[2018-05-28] MEDS: CLOPIDOGREL 75 MG TABLET PO SCH (08:35)
[2018-05-28] MEDS: APIXABAN 5 MG TABLET PO SCH (08:35)
[2018-05-28] MEDS: ARFORMOTEROL TARTRATE 15 MCG/2 ML VIAL.NEB NEB SCH (08:36)
[2018-05-28] MEDS: AMLODIPINE 10 MG TAB PO SCH (08:36)
[2018-05-28] MEDS: AMIODARONE HCL 200 MG TAB PO SCH (08:36)
[2018-05-28] MEDS: METOPROLOL TAR 50 MG TAB PO SCH (08:36)
[2018-05-28] MEDS: FUROSEMIDE 20 MG/ 2ML VIAL IV SCH (08:37)
[2018-05-28 08:40] VITALS: TEMP 98.5
--- NOTE | 2018-05-28 09:49 | P.DS ---
Admission Date: 05/26/18 Discharge Date: 05/28/18 Primary Care Provider: None; Pulmonary-Dr. Mccollum; Cardiology-Dr. Asher Disposition: ROUTINE DISCHARGE Discharge Condition: GOOD Reason for Admission: Shortness of breath Consultations: Pulmonary-Dr. Mccollum Procedures: Echocardiogram: Ejection fraction 70%. DOPPLER/COLOR FLOW: MILD MITRAL REGURGITATION. MILD TRICUSPID REGURGITATION. MILDLY PULMONARY HYPERTENSION. ESTIMATED RIGHT VENTRICULAR SYSTOLIC PRESSURE 45mmHg. COMMENTS: NORMAL LEFT VENTRICULAR EJECTION FRACTION. LEFT VENTRICULAR HYPERTROPHY. DILATED LEFT ATRIUM. MITRAL ANNULAR CALCIFICATION. AORTIC SCLEROSIS WITH NO AORTIC STENOSIS/ AORTIC REGURGITATION. MILD MITRAL REGURGITATION. MILD TRICUSPID REGURGITATION. MILD PULMONARY HYPERTENSION. - Problems (1) COPD (chronic obstructive pulmonary disease) Onset Date: 05/27/18 Current Visit: Yes Status: Chronic Qualifiers: COPD type: chronic bronchitis Chronic bronchitis type: unspecified Qualified Code(s): J42 - Unspecified chronic bronchitis (2) Chronic anticoagulation Onset Date: 05/27/18 Current Visit: Yes Status: Chronic (3) Hypertension Onset Date: 05/27/18 Current Visit: Yes Status: Chronic Qualifiers: Hypertension type: essential hypertension Qualified Code(s): I10 - Essential (primary) hypertension (4) Hyperlipidemia Onset Date: 05/27/18 Current Visit: Yes Status: Chronic Qualifiers: Hyperlipidemia type: unspecified Qualified Code(s): E78.5 - Hyperlipidemia , unspecified (5) Hypothyroidism Onset Date: 05/27/18 Current Visit: Yes Status: Chronic Qualifiers: Hypothyroidism type: unspecified Qualified Code(s): E03.9 - Hypothyroidism , unspecified (6) Anemia Onset Date: 06/01/16 Current Visit: No Status: Chronic Qualifiers: Anemia type: other cause (7) Atrial fibrillation Onset Date: 05/27/18 Current Visit: Yes Status: Chronic Qualifiers: Atrial fibrillation type: chronic Qualified Code(s): I48.2 - Chronic atrial fibrillation (8) Chronic kidney disease Onset Date: 05/27/18 Current Visit: Yes Status: Chronic Qualifiers: Chronic kidney disease stage: stage 3 (moderate) Qualified Code(s): N18.3 - Chronic kidney disease, stage 3 (moderate) (9) Congestive heart failure (CHF) Onset Date: 05/27/18 Current Visit: Yes Status: Acute Qualifiers: Heart failure type: diastolic Heart failure chronicity: acute on chronic Qualified Code(s): I50.33 - Acute on chronic diastolic (congestive) heart failure (10) Pulmonary hypertension Current Visit: Yes Status: Chronic (11) Supplemental oxygen dependent Current Visit: Yes Status: Chronic Brief History of Present Illness: 83-year-old female presented to ER with shortness of breath. Patient reports increasing shortness of breath over the past 2 weeks. She also has reported some edema to the lower extremity. She denied any chest pain, nausea, vomiting or diarrhea. Patient has reported some orthopnea. She is not able to lie flat. Shortness of breath worsened over the past 2 days. Increasing peripheral edema has been noted. Patient with history of atrial fibrillation on chronic anti coagulation therapy, hypertension, COPD, anemia, peripheral vascular disease, CAD, and carotid arterial disease. In the ER patient was evaluated. White count 10.2, hemoglobin 7.3. Platelet count of 419. Sodium 138, potassium 4.9, GFR 48. BNP 4016. Urinalysis negative. Chest x-ray showed moderate CHF. Due to nature the findings the patient was admitted for treatment. In the ER patient appeared stable. She did not appear in any respiratory distress. Patient had room-air saturations about 91%. Respiratory was slightly elevated. Patient was given Lasix in the emergency room. Patient denies any significant hematuria, rectal bleeding, or melena. Patient further reports a history of anemia. She is had EGD and colonoscopy in the past. Patient has required blood transfusion in the past. Hospital Course: Patient presented with shortness of breath secondary to CHF exacerbation. Patient was evaluated the emergency room. Chest x-ray showed CHF pattern. Patient was diuresed. Echocardiogram done. Patient with diastolic dysfunction. Ejection fraction 71%. Medications have been adjusted. Patient did well in the course of her stay. Patient will no longer take hydrochlorothiazide. New medication includes Lasix. At discharge patient will continue with Lasix 40 mg 1 pill twice daily. Patient will also continue with a 1500 cc per day fluid restriction and low-salt diet. Recommendation is to monitor her weight daily. If her weight increases by more than 5 lb further adjustment in medication may be required. Further adjustment can be done by her PCP or cardiology. Patient will continue with incentive spirometer. Patient will continue with home oxygen to maintain sats above 90%. Patient has COPD. This remained stable. No pneumonia or COPD exacerbation was noted during her stay. Patient was given Solu-Medrol in the emergency room. Patient evaluated by pulmonology. No intervention was required. At discharge, Patient will continue with Breo 1 puff daily and albuterol 1 unit dose 3 times a day as needed for shortness of breath. Patient will continue with home oxygen and to maintain sats above 90%. Recommendation is for the patient follow up with pulmonology as an outpatient to further monitor. Patient has atrial fibrillation. Patient takes chronic anti coagulation therapy -Eliquis. Patient had only been taking once daily dosing of Eliquis. Medications were adjusted during her stay. At discharge patient was in atrial fibrillation, rate controlled. At discharge patient will continue with amiodarone 200 mg 1 pill twice daily. At discharge metoprolol has been increased to 100 mg 1 pill twice daily for better rate control. Her coagulation therapy has been adjusted as well. At discharge, Patient will continue with Eliquis 5 mg 1 pill twice daily. Patient will need a follow up with cardiology in 1 week to monitor her progress. Further adjustment can be done by cardiology. Patient has hypertension. Medications have been adjusted. Patient will no longer take lisinopril, hydrochlorothiazide due to her chronic renal disease. Metoprolol has been adjusted. At discharge she will continue with metoprolol 100 mg 1 pill twice daily and Norvasc 10 mg daily. Recommendation is to maintain blood pressures less 150/80. Further adjustment can be done by her PCP or cardiology. Patient has anemia. Patient with iron and B12 deficiency. Patient required transfusion during her stay. Patient received 2 units of blood. Patient had not been taking her iron or B12 supplementation in quite some time. Patient reports seen GI in the past. She has had EGD and colonoscopy. It is been over a year since she last took iron supplementation. No melena noted. At discharge she will continue with iron 325 mg 1 pill twice daily and B12 100 mcg 1 pill daily. Recommendation is to recheck CBC, iron and B12 in 2-4 weeks to monitor progress. Patient has seen and been evaluated by GI. Recommendation is for the patient follow up with GI to further address. Patient may require GI follow up intervention. Patient has hypothyroidism. Patient will continue with Synthroid 25 mcg daily. Patient has hyperlipidemia. Patient will continue with Lipitor 20 mg 1 pill once daily. Patient has CAD. Patient continue with Plavix 75 mg 1 pill once daily. Patient with history of constipation. Patient will continue with lactulose as needed. Patient has chronic renal disease. Medications have been adjusted. Lisinopril , hydrochlorothiazide has been discontinued. Renal function remained stable. Recommendation on no further use of nonsteroidal anti-inflammatories. Future medications will need to be renally dosed. Recommendations for the patient follow up with nephrology as an outpatient to further monitor and address. Vital Signs/Physical Exam: Temp Pulse Resp BP Pulse Ox 98.5 F 74 20 195/72 H 94 05/28/18 08:00 05/28/18 08:37 05/28/18 08:00 05/28/18 08:37 05/28/18 08:00 General: Alert, In no apparent distress, Oriented x3, Cooperative HEENT: Atraumatic Neck: Supple Respiratory: Clear to auscultation bilaterally, Normal air movement Cardiovascular: Irregular heart rate/rhythm (Atrial fibrillation, rate controlled) Gastrointestinal: Normal bowel sounds, Soft and benign, Non-distended, No ascites, No tenderness, No masses, No rebound, No guarding Musculoskeletal: No erythema, No tenderness, No warmth Integumentary: No tenderness/swelling, No erythema, No warmth, No cyanosis Neurological: Normal speech, Normal strength at 5/5 x4 extr, Normal tone, Normal affect Lymphatics: No axilla or inguinal lymphadenopathy Laboratory Data at Discharge: WBC 18.6 K/uL (4.3-10.9) H 05/28/18 07:00 Hgb 8.8 g/dL (12.0-15.0) L 05/28/18 07:00 Hct 28.6 % (36.0-45.0) L 05/28/18 07:00 Plt Count 427 K/uL (152-406) H 05/28/18 07:00 PT 12.8 SECONDS (9.5-12.5) H 05/26/18 11:35 INR 1.08 05/26/18 11:35 Sodium 138 mmol/L (136-145) 05/28/18 02:56 Potassium 4.6 mmol/L (3.5-5.1) 05/28/18 02:56 BUN 45 mg/dL (7-18) H 05/28/18 02:56 Creatinine 1.40 mg/dL (0.55-1.3) H 05/28/18 02:56 Glucose 134 mg/dL (74-106) H 05/28/18 02:56 Magnesium 2.1 mg/dL (1.8-2.4) 05/28/18 02:56 Total Bilirubin 0.6 mg/dL (0.2-1.0) 05/28/18 02:56 AST 24 U/L (15-37) 05/28/18 02:56 ALT 26 U/L (12-78) 05/28/18 02:56 Alkaline Phosphatase 75 U/L (45-117) 05/28/18 02:56 Troponin I 0.03 ng/mL (0.0-0.045) 05/27/18 04:17 Triglycerides 58 mg/dL (<150) 05/27/18 04:17 Cholesterol 127 mg/dL (<200) 05/27/18 04:17 HDL Cholesterol 76 mg/dL (40-60) H 05/27/18 04:17 Cholesterol/HDL Ratio 1.67 05/27/18 04:17 Home Medications: Amiodarone HCl [Cordarone*] 200 mg PO BID 04/27/16 Atorvastatin Calcium [Lipitor*] 20 mg PO DAILY 04/27/16 Clopidogrel Bisulfate [Plavix] 75 mg PO DAILY 04/27/16 Levothyroxine [Synthroid*] 25 mcg PO [id number] 04/27/16 Amlodipine [Norvasc*] 10 mg PO DAILY #30 tab 04/30/16 Fluticasone/Vilanterol [Breo Ellipta 200-25 Mcg INH] 1 each IH DAILY 05/31/16 Albuterol Sulfate [Proair Hfa] 2 puff IH QID PRN 05/26/18 Hydrocodone Bit/Acetaminophen [Hydrocodon-Acetaminoph 7.5-325] 1 tab PO BID PRN 05/26/18 Lactulose 20 gm PO DAILY PRN 05/26/18 Apixaban [Eliquis] 5 mg PO BID #60 tablet 05/28/18 Cyanocobalamin (Vitamin B-12) [Vitamin B-12] 1,000 mcg PO DAILY #30 capsule Ferrous Sulfate [Iron] 325 mg PO BID #60 tablet 05/28/18 Furosemide [Lasix] 40 mg PO BIDL #60 tab 05/28/18 Metoprolol Tartrate [Lopressor*] 100 mg PO BID #120 tab 05/28/18 New Medications: Apixaban [Eliquis] 5 mg PO BID #60 tablet Cyanocobalamin (Vitamin B-12) [Vitamin B-12] 1,000 mcg PO DAILY #30 capsule Ferrous Sulfate [Iron] 325 mg PO BID #60 tablet Furosemide [Lasix] 40 mg PO BIDL #60 tab Metoprolol Tartrate [Lopressor*] 100 mg PO BID #120 tab Patient Discharge Instructions: 1. Patient will need to follow up with a PCP in 1 week to follow up this hospitalization. 2. Patient presented with shortness of breath secondary to CHF exacerbation. Patient with diastolic dysfunction. Medications have been adjusted. Patient will no longer take hydrochlorothiazide. New medication includes Lasix. At discharge patient will continue with Lasix 40 mg 1 pill twice daily. Patient will also continue with a 1500 cc per day fluid restriction and low-salt diet. Recommendation is to monitor her weight daily. If her weight increases by more than 5 lb further adjustment in medication may be required. Further adjustment can be done by her PCP or cardiology. Patient will continue with incentive spirometer. Patient will continue with home oxygen to maintain sats above 90%. 3. Patient has COPD. This remained stable. Patient will continue with Breo 1 puff daily and albuterol 1 unit dose 3 times a day as needed for shortness of breath. Patient will continue with home oxygen and to maintain sats above 90%. Recommendation is for the patient follow up with pulmonology as an outpatient to further monitor. 4. Patient has atrial fibrillation. Patient takes chronic anti coagulation therapy. At discharge patient will continue with amiodarone 200 mg 1 pill twice daily. Patient also takes metoprolol. This has been adjusted. At discharge metoprolol has been increased to 100 mg 1 pill twice daily. Her coagulation therapy has been adjusted as well. Patient will continue with Eliquis 5 mg 1 pill twice daily. Patient will need a follow up with cardiology in 1 week to monitor her progress. Further adjustment can be done by cardiology. 5. Patient has hypertension. Medications have been adjusted. Patient will no longer take lisinopril due to her chronic renal disease. Metoprolol has been adjusted. Hydrochlorothiazide has been discontinued. At discharge she will continue with metoprolol 100 mg 1 pill twice daily and Norvasc 10 mg daily. Recommendation is to maintain blood pressures less 150/80. Further adjustment can be done by her PCP or cardiology. 6. Patient has anemia. Patient with iron and B12 deficiency. Patient required transfusion during her stay. Patient received 2 units of blood. Patient had not been taking her iron or B12 supplementation. At discharge she will continue with iron 325 mg 1 pill twice daily and B12 100 mcg 1 pill daily. Recommendation is to recheck CBC, iron and B12 in 2-4 weeks to monitor progress. Patient has seen and been evaluated by GI. Recommendation is for the patient follow up with GI to further address. 7. Patient has hypothyroidism. Patient will continue with Synthroid 25 mcg daily. 8. Patient has hyperlipidemia. Patient will continue with Lipitor 20 mg 1 pill once daily. 9. Patient has CAD. Patient continue with Plavix 75 mg 1 pill once daily. 10. Patient with history of constipation. Patient will continue with lactulose as needed. 11. Patient has chronic renal disease. Medications have been adjusted. Lisinopril has been discontinued. Renal function remained stable. Recommendation on no further use of nonsteroidal anti-inflammatories. Future medications will need to be renally dosed. Recommendations for the patient follow up with nephrology as an outpatient to further monitor and address. Diet: AHA Activity: Ad anne-marie Time spent managing pt's care (in minutes): 55
[2018-05-28 12:24] VITALS: BP 157/63
== END 2018-05-28 11:25 | disposition home or self-care (01) ==
LOC: ER 10:15 → INTOOBSV 13:29 → ERHOLD 13:29 → 4TH 16:03
PROVIDERS: ADMIT Family Medicine; ATTEND Family Medicine
PROC: 30233N1 Transfusion of Nonautologous Red Blood Cells into Peripheral Vein, Percutaneous Approach (ICD-10-PCS; principal; 2018-05-27)
DX: I13.0 Hypertensive heart and chronic kidney disease with heart failure and stage 1 through stage 4 chronic kidney disease, or unspecified chronic kidney disease (principal); N18.3 Chronic kidney disease, stage 3 (moderate); I50.33 Acute on chronic diastolic (congestive) heart failure; Z99.81 Dependence on supplemental oxygen; E78.5 Hyperlipidemia, unspecified; Z79.01 Long term (current) use of anticoagulants; E03.9 Hypothyroidism, unspecified; J44.9 Chronic obstructive pulmonary disease, unspecified; I48.91 Unspecified atrial fibrillation; D50.9 Iron deficiency anemia, unspecified; D51.9 Vitamin B12 deficiency anemia, unspecified; I25.10 Atherosclerotic heart disease of native coronary artery without angina pectoris
CPT/HCPCS: 36415 ×2; 36430; 71045; 71046 ×2; 80048; 80053 ×2; 80061; 80076; 81003; 82550 ×2; 82553 ×2; 82607; 82728; 83540; 83735 ×3; 83880; 84145; 84439; 84443; 84466; 84484 ×3; 85014 ×2; 85018 ×2; 85025 ×4; 85610; 86850; 86900; 86901; 87040 ×2; 93005; 93306; 96374; 99285; C9113 ×4; J1940 ×5; J2916; J2930 ×3; J7605 ×4; P9016 ×2; J7512